=== PATIENT | female | born 1985 | race Caucasian/White ===

== ENCOUNTER 2020-11-14 10:58 | Inpatient (IN) | payer OTHER, SELFPAY ==
[2020-11-14] VITALS (10 sets, daily range): BP systolic 153–170; BP diastolic 86–100; PULSE 100–129; RESP 20–33; TEMP 36.7–37.4; O2SAT 86–94; BMI 47.3; BMI 42.5
--- NOTE | 2020-11-14 11:12 | CM.ED ---
RHODA Note Reason for Referral: Patient's oxygen level is low and patient is coughing Referral Source:RN RHODA met with patient. Provided emotional support. is covid positive. Patient has been in current condition for 3 days. Kids are home due to parents testing positive. Emotional support provided. Plan: Emotional Support Jen POTTER
--- NOTE | 2020-11-14 11:31 | ED.VIS.DYS ---
HPI History of Present Illness Chief Complaint: Cough Detail of Chief Complaint: Covid positive for approximately a week. Informant: patient Onset/Context/Timing Onset: Days Context: gradual Timing: Continuous Current Severity: Mild Maximum Severity: Mild Associated Symptoms cough Chest Pain: Positive for None Narrative Narrative: 35-year-old female history of diabetes and hypertension. Covid positive test about a week ago. Does complain of feeling short of breath. Cough. No hemoptysis. No leg pain or swelling. No history of DVT or PE. PE Risk Factors: Negative for Cancer, OCP + Smoking + > 35, Prior DVT or PE, Recent immobilization and Recent surgery Prior similar symptoms: No Recent Illness/Hospitalization: No PFSH PFSH Medical History (Updated 11/14/20 @ 13:[address] Cristino Reynolds MD) Diabetes Hypertension Home Medications Novolin R 56 units SQ BID 08/07/14 [History Last Taken 08/26/14 18:00] insulin NPH isoph U-100 human [Novolin N] 78 units SQ BID 08/07/14 [History Last Taken 08/26/14 22:00] metformin 1,000 mg PO BIDCM 08/07/14 [History Last Taken 08/26/14 22:00] [id number] [Prenatabs FA] 1 tab PO DAILY 08/07/14 [History Last Taken 1 Day Ago ~08/26/14] Allergy/AdvReac Type Severity Reaction Status Date / Time No Known Allergies Allergy Verified 11/14/20 11:11 Surgical History (Updated 11/14/20 @ 11:41 by Becca Feliz) History of History of cholecystectomy Social History Smoking Status: Never smoker ROS ROS ED ROS Narrative Cough. Shortness of breath. Review of Systems ROS Unobtainable: Denies due to encephalopathy Constitutional Constitutional ED: Denies chills or fever(s) Eyes Eyes: Denies change in vision ENT ENT ED: Denies ear pain or sore throat Cardiovascular Cardiovascular: Denies chest pain or palpitations Respiratory/Chest Respiratory/Chest: Reports cough and dyspnea; Denies sputum Gastrointestinal Gastrointestinal: Denies abdominal pain, diarrhea, nausea or vomiting Genitourinary Genitourinary ED: Denies dysuria Musculoskeletal Musculoskeletal: Denies myalgias Integumentary Denies rash Neurologic Neurologic: Denies headache(s) Psychiatric Psychiatric: Denies depression Endocrine Endocrinology: Denies polyuria Hematologic/Lymphatic Hematologic/Lymphatic: Denies easy bruising Allergic/Immunologic Allergic/Immunologic ED: Denies urticaria EXAM Physical Exam Narrative Exam Narrative: Well-appearing 35-year-old female. Vital signs are stable except pulse ox 89% on room air hypoxic. Afebrile. Does not look septic toxic. Lungs are clear equal symmetric bilaterally. Heart regular rhythm rate of 120. No murmur. Abdomen soft nontender. Moving all 4 extremities. Calves are nontender without edema or cords. Neurologically patient is awake alert with no focal motor deficits. Const Vital Signs: 11/14/20 10:59 11/14/20 11:38 Temperature 98.3 F 98.5 F Temperature Source Temporal Oral Pulse Rate 129 H 122 H Respiratory Rate 26 H 33 H Respiratory Effort Short of Breath Respiratory Pattern Tachypnea Blood Pressure 169/91 H 168/100 H Blood Pressure Mean 117 122 Pulse Ox 89 93 Oxygen Delivery Method Room Air Nasal Cannula Oxygen Flow Rate (L/min) 2 Positive well nourished, well developed and obese; Negative for cachectic, contractures or unkempt General Appearance ED: well developed and NAD; Negative for unkempt, cachectic or contractures Nutritional Appearance: obese; Negative for cachectic HEENT Reports moist mucous membranes atraumatic; Negative for trauma or tenderness Eyes PERRL and EOMs intact bilaterally Neck no lymphadenopathy, supple and no meningeal signs General: Negative for tenderness Resp normal respiratory effort and clear to auscultation bilaterally Auscultation: Negative for rales, rhonchi or wheezes Cardio regular rhythm, S1 normal heart sound, S2 normal heart sound and no murmurs; Negative for regular rate Rate: tachycardic GI non-tender, non-distended and no masses Auscultation: normoactive bowel sounds Palpation: soft; Negative for tender, guarding or rebound tenderness present Back/Spine no CVA tenderness and normal to inspection Extremity normal to inspection General Extremety ED: Negative for edema or tenderness General Extremity: Negative for edema Neuro oriented x3 Sensorium / Orientation: alert, oriented to person, oriented to place and oriented to time; Negative for orientation impaired, confused, lethargic or stuporous Motor Exam: strength 5/5 throughout Psych mental status grossly normal Appearance: Negative for unkempt Skin no wounds Lesions: no lesions Rashes: no rashes MDM MDM MDM Narrative Medical decision making narrative: 35-year-old female Covid positive complaint shortness of breath with hypoxia. Screening labs chest x-ray being obtained. Lab Data Attestation: I reviewed the patient's lab results. Lab results narrative: CBC shows a white count of 7. Hemoglobin 13. Electrolytes sodium 134 potassium of 3 gap of 9 normal creatinine. Glucose of 274. Patient is diabetic. Labs: Laboratory Results - last 24 hr 11/14/20 11/14/20 11:35 11:35 WBC 7.6 RBC 5.08 Hgb 13.8 Hct 41.1 MCV 80.9 L MCH 27.2 MCHC 33.6 RDW Std Deviation 36.8 RDW Coeff of Jabier 12.5 Plt Count 204 MPV 10.2 Immature Gran % (Auto) 0.500 Neut % (Auto) 73.4 H Lymph % (Auto) 21.8 [place] % (Auto) 4.2 Eos % (Auto) 0.0 Baso % (Auto) 0.1 Absolute Neuts (auto) 5.6 Absolute Lymphs (auto) 1.66 Nucleated RBC % 0 Sodium 134 L Potassium 3.0 L Chloride 100 Carbon Dioxide 25.0 Anion Gap 9 BUN 5 L Creatinine 0.68 Estim Creat Clear Calc 122.49 Est GFR (MDRD) Af Amer 125 Est GFR (MDRD) Non-Af 103 BUN/Creatinine Ratio 7.3 L Glucose 274 H Calcium 8.8 Radiography Chest X-Ray - ED: 1 View, Read by ED Physician, Read by Radiologist, Right Infiltrate and Left Infiltrate Diagnostic Testing: Radiology Impression Chest X-Ray 11/14/20 11:38 IMPRESSION: Patchy bibasilar infiltrates with blunting of both costophrenic angles. Electronically Signed: Akash Sales MD at 11:52 EDT , Service support , Portable single view chest x-ray interpreted myself and radiologist shows bilateral infiltrates consistent with Covid pneumonitis. Discharge Plan Triage Chief Complaint: Cough ED Provider: Cristino Reynolds Dx/Rx/DC Orders Clinical Impression: COVID, Hypoxia Prescriptions: No Action metformin 1,000 MG tablet 1,000 mg PO BIDCM RF: 0 insulin NPH isoph U-100 human [Novolin N NPH U-100 Insulin] 100 UNIT/ML Ml 78 units SQ BID RF: 0 [id number] [Prenatabs FA] 1 TABLET tablet 1 tab PO DAILY RF: 0 Novolin R 56 units SQ BID RF: 0 Primary Care Provider: Kendall Ordonez Referrals: Kendall Ordonez DO [Primary Care Provider] - Disposition Disposition: Acute Care Hospital [facility]
--- NOTE | 2020-11-14 11:38 | RAD_ITS ---
STUDY: X-RAY CHEST REASON FOR EXAM: Female, 35 years old. Dyspnea TECHNIQUE: Single AP portable view of the chest. COMPARISON: None. FINDINGS: EKG electrodes are seen. Patchy bibasilar infiltrates. Blunting of both costophrenic angles. Normal size heart. Normal mediastinum and essence. Normal visualized pulmonary arteries. Normal visualized aortic arch and descending thoracic aorta. Normal visualized thoracic spine. Normal visualized ribs, clavicles, and shoulders. There is no demonstrated abnormality of the visualized soft tissue structures of the upper abdomen. RAD/Chest 1 View (Portable) IMPRESSION: Patchy bibasilar infiltrates with blunting of both costophrenic angles. Electronically Signed: Akash Sales MD at 11:52 EDT , Service support ,
[2020-11-14 11:49] LABS: Absolute Lymphocyte Count 1.66 X10^3/uL (0.83-4.51); Absolute Neutrophil Count 5.6 X10^3/uL (2.0-7.7); Basophil# 0.01 X10^3/uL; Basophil% 0.1 % (0-1); Hematocrit 41.1 % (37-47); Hemoglobin 13.8 g/dL (12.0-15.0); Lymphocyte # 1.66 X10^3/ul (0.83-4.51); Lymphocyte % 21.8 % (19-41); Mean Corp Hgb Conc 33.6 g/dL (32-36); Mean Corpuscular Hgb 27.2 pg (27.0-32.0); Mean Corpuscular Volume 80.9 fL (81-99); Mean Platelet Vol. 10.2 fl (6.2-12.0); Monocyte# 0.32 X10^3/uL; Monocyte% 4.2 % (0-10); NRBC Flagged by Analyzer 0 % (0-5); Neutrophil # 5.57 X10^3/uL (2.7-7.7); Neutrophil % 73.4 % (47-70); Platelet Count 204 K/mm3 (150-450); RBC Distribution Width CV 12.5 % (11.6-14.6); RBC Distribution Width SD 36.8 fl (35.1-43.9); Red Blood Count 5.08 M/mm3 (4.2-5.4); White Blood Count 7.6 K/mm3 (4.4-11.0)
[2020-11-14 12:00] LABS: Anion Gap 9 (5-15); BUN 5 mg/dL (7-18); BUN/Creat Ratio 7.3 RATIO (10-20); Calcium,Total 8.8 mg/dL (8.5-10.1); Chloride 100 mmol/L (98-107); Creatinine, Serum 0.68 mg/dL (0.55-1.02); EST Glomerular Filtration Rate 103 mL/min (>60); Est Glom Filt Rate - Afr Amer 125 mL/min (>60); Estimated Creatinine Clearance 122.49 ml/min; Glucose 274 mg/dL (74-106); Sodium Level 134 mmol/L (136-145)
--- NOTE | 2020-11-14 12:57 | HP.PCM.HOS_ITS ---
HPI - General General Date of Admission: 11/14/20 HPI Narrative NATACHA DUNCAN, is a 35 F with a PMH as outlined who presents witha complaitn of cough and shortness of breath. She tested positive for covid 1 week ago, and her symptoms started November 04. Symptoms worsened and so she came in to the ED. She denied any chest pain, palpitations, dizziness, nausea or vomiting. Review of systems was otherwise negative. Vitals showed BP of 168/100, GA of 122, RR of 33 and temp of 98.5F with sats of 93% on 2L of oxygen. CBC showed wbc o 7.6, with Hb of 13.8, platelets of 204, BMP showed sodium of 134, K of 3 and bicarb of 25, with Cr of 0.68. CXR showed patchy bibasilar infiltrates with blunting of both costophrenic angles. SHe is being admitted to be managed for acute hypoxic respiratory insufficiency due to COVID 19 infection. She is unvaccinated. [facility] Medical History (Updated 11/14/20 @ 15:51 by Yasmin Stevens) Diabetes Hypertension Non-smoker Pancreatitis Sleep apnea Home Medications metformin 1,000 mg PO BIDCM 08/07/14 [History Last Taken 11/13/20] drospirenone-ethinyl estradiol 1 tab PO DAILY 11/14/20 [History Last Taken 11/13/20] insulin glargine [Basaglar KwikPen U-100 Insulin] 49 unit SUBCUT QHS 11/14/20 [History Last Taken 11/13/20] levothyroxine 50 mcg PO DAILY 11/14/20 [History Last Taken 11/13/20] losartan [Cozaar] 25 mg PO DAILY 11/14/20 [History Last Taken 11/13/20] Allergy/AdvReac Type Severity Reaction Status Date / Time No Known Allergies Allergy Verified 11/14/20 11:11 Surgical History (Updated 11/14/20 @ 11:41 by Becca Feliz) History of History of cholecystectomy Social History Smoking Status: Never smoker ROS Constitutional Constitutional: Reports fatigue and malaise; Denies anorexia, change in weight, chills, fever(s), night sweats or weakness ENT HEENT: Denies dysphagia, headache(s), nasal congestion or nasal discharge Cardiovascular Cardiovascular: Reports dyspnea on exertion, palpitations and rapid heart rate; Denies chest pain, edema, lightheadedness, orthopnea, paroxysmal nocturnal dyspnea or syncope Respiratory/Chest Respiratory/Chest: Reports cough, dyspnea, productive cough, shortness of breath at rest and shortness of breath with exertion; Denies excessive phlegm production, hemoptysis or wheezing Gastrointestinal Gastrointestinal: Denies abdominal pain, constipation, diarrhea, nausea or vomiting Genitourinary Genitourinary: Denies burning urination, dysuria or urinary frequency Musculoskeletal Musculoskeletal: Denies arthralgias, back pain, joint swelling or myalgias Neurologic Neurologic: Denies confusion, dizziness, focal weakness, seizures or syncope Psychiatric Psychiatric: Denies anxiety Vital Signs Vital Signs Vital Signs: 11/14/20 10:59 11/14/20 11:38 Temperature 98.3 F 98.5 F Temperature Source Temporal Oral Pulse Rate 129 H 122 H Respiratory Rate 26 H 33 H Respiratory Effort Short of Breath Respiratory Pattern Tachypnea Blood Pressure 169/91 H 168/100 H Blood Pressure Mean 117 122 Pulse Ox 89 93 Oxygen Delivery Method Room Air Nasal Cannula Oxygen Flow Rate (L/min) 2 Weight Weight: 330 lb Body Mass Index (BMI) 47.3 Physical Exam Const alert, oriented x3 and no apparent distress Constitutional Narrative: super morbid obesity General Appearance: cooperative HEENT normocephalic, head/scalp atraumatic, hearing grossly normal bilaterally and moist oral mucous membranes Eyes PERRL, EOMs intact bilaterally and conjunctivae normal Neck no lymphadenopathy, supple, no JVD and no carotid bruits Resp Resp Narrative: tachypneic, diminished breath sounds bibasally, no wheezes or crackles. On 2L of oxygen Cardio regular rhythm, S1 normal heart sound, S2 normal heart sound and no murmurs Cardio Narrative: tachyardic GI normal to inspection, nondistended, normoactive bowel sounds, soft to palpation, non-tender and non-distended Extremity normal to inspection, full ROM and no clubbing, cyanosis or edema Peripheral Pulses: Yes pulses 2+ throughout Skin no rashes or lesions noted Neuro oriented x3, CN's II-XII intact bilaterally and moves all extremities Sensorium / Orientation: awake and alert Psych affect normal Results Lab / Micro Data Result Diagrams: 11/14/20 11:35 11/14/20 11:35 Labs: Laboratory Results - last 24 hr 11/14/20 11:35: WBC 7.6, RBC 5.08, Hgb 13.8, Hct 41.1, MCV 80.9 L, MCH 27.2, MCHC 33.6, RDW Std Deviation 36.8, RDW Coeff of Jabier 12.5, Plt Count 204, MPV 10.2, Immature Gran % (Auto) 0.500, Neut % (Auto) 73.4 H, Lymph % (Auto) 21.8, [place] % (Auto) 4.2, Eos % (Auto) 0.0, Baso % (Auto) 0.1, Absolute Neuts (auto) 5.6, Absolute Lymphs (auto) 1.66, Nucleated RBC % 0 11/14/20 11:35: Sodium 134 L, Potassium 3.0 L, Chloride 100, Carbon Dioxide 25.0, Anion Gap 9, BUN 5 L, Creatinine 0.68, Estim Creat Clear Calc 122.49, Est GFR (MDRD) Af Amer 125, Est GFR (MDRD) Non-Af 103, BUN/Creatinine Ratio 7.3 L, Glucose 274 H, Calcium 8.8 Radiology Impression Chest X-Ray 11/14/20 11:38 IMPRESSION: Patchy bibasilar infiltrates with blunting of both costophrenic angles. Electronically Signed: Akash Sales MD at 11:52 EDT , Service support , Assessment & Plan Assessment/Plan (1) COVID: (2) Hypoxia: PLAN: #Acute hypoxic respiratory insufficiency due to COVID 19 infection * admit to med surg with telemetry * start on IV decadron and remdesivir * breathing treatment with bronchodilators * CXR showed patchy bibasilar infiltrates with blunting of both costophrenic angles * titrate oxygen to maintain sats >90% * check D dimer * #SIRS criteria * patient is tachypneic and tachycardic. Likely due to COVID 19 infection * hold off on sepsis workup for now * #TYpe 2 diabetes mellitus * on metformin and insulin NPH 78 units bid. * ISS. Accuchecks ACHS * #DVT prophylaxis: lovenox 40mg bid Code status: full code * Patient counseled extensively about different types of CODE STATUS including full code, DNR CCA and DNR CCA. Patient elects to be full code. * Total [id number] time 17 minutes. Charges/Coding Visit Charges Inpatient E&M: 38241 Init Hosp L3 Procedures Hospitalists Procedures: 84511 Advncd Care Plan 30 Min
--- NOTE | 2020-11-14 13:14 | NURSING ---
PCU OBS KORAM COVID , HYPOXIA
[2020-11-14] MEDS: dexAMETHasone 20 MG/5 ML Vial IV (13:45)
--- NOTE | 2020-11-14 15:21 | NURSING ---
This nurse clarified if Dr. Patricio wanted pt to be in PCU Vs Med Surg. Via phone per Dr. Patricio she is okay to be here on Med Surg.
[2020-11-14 16:53] LABS: BNP,B-Type NATRIURETIC PEPTIDE 2.7 pg/mL (0-100)
[2020-11-14 16:54] LABS: Prothrombin Time (Protime)PT. 12.9 SECONDS (11.7-14.9)
[2020-11-14 16:58] LABS: Alkaline Phosphatase 78 U/L (45-117); CPK Total, Creatine Kinase 70 U/L (26-192); Troponin-I HS 7 pg/mL (3.0-54.0)
[2020-11-14 17:02] LABS: Procalcitonin 0.07 ng/mL (0.00-0.09)
[2020-11-14 17:30] LABS: Lactic Acid 1.6 mmol/L (0.4-1.9)
[2020-11-14 17:32] LABS: D-Dimer Quantitative (DVT/PE) 0.77 FEU/ug/m (0.27-0.49)
[2020-11-14] MEDS: 0.9% Normal Saline 1,000 ML 100 ML IV (17:32)
[2020-11-14] MEDS: 0.9% Saline Lock 10 ML Syringe IV ×2 (17:32→18:51)
[2020-11-14] MEDS: Insulin Lispro 100 UNIT/ML INSULN.PEN SC ×2 (17:34→20:16)
[2020-11-14 17:46] LABS: Bedside Glucose 323 mg/dL (70-110)
--- NOTE | 2020-11-14 17:52 | NURSING ---
Informed Dr. Patricio via Cortext of D-dimer of 0.77
--- NOTE | 2020-11-14 17:53 | CT_ITS ---
HISTORY: Cough, dyspnea, Covid, elevated D Dimer EXAMINATION: CTA Chest WO/W Contrast Injection TECHNIQUE: Helically acquired images were obtained of the chest following IV contrast as per pulmonary angiogram protocol with 3D reconstructions. A radiation dose optimization technique was used for this scan. IV Contrast dosage and agent: 100mL Isovue-370 COMPARISON: None FINDINGS: LUNGS, PLEURA AND LARGE AIRWAYS: Extensive, multifocal and bilateral alveolar and groundglass opacities with scattered consolidations at the lung bases. Septal prominence. No pleural effusions. THYROID: No thyroid lesions. PULMONARY ARTERIES: There is suboptimal opacification of the pulmonary arteries. There is no central or hilar pulmonary embolism. Segmental branch pulmonary embolism cannot be excluded. AORTA AND GREAT VESSELS: Normal in caliber. No evidence of dissection. HEART AND PERICARDIUM: Cardiomegaly. No pericardial effusion. No signs of right heart strain. MEDIASTINUM AND KYLE: No mediastinal or hilar adenopathy. Esophagus is unremarkable. No hiatal hernia. UPPER ABDOMEN: Cholecystectomy. Diffuse hepatic steatosis. BONES: Unremarkable. CT/CTA Chest W/WO Contrast IMPRESSION: Suboptimal opacification of the pulmonary arteries. There is no central or hilar pulmonary embolism, but the primary segmental and secondary subsegmental branches cannot be evaluated. If symptomatology persists, either a repeat study or V/Q scan should be considered. Pulmonary findings consistent with pneumonia including atypical or viral pneumonia. Cardiomegaly. Individualized dose optimization techniques were used for this CT. at 1915 Reported and signed by: Sedrick Herrera MD Electronically Signed: Sedrick Herrera MD at 19:14 EDT Tel , Service support ,
[2020-11-14] MEDS: Potassium Chloride Oral Tablet 20 MEQ 60 MEQ PO (18:51)
[2020-11-14] MEDS: Enoxaparin 40 MG/0.4 ML Syringe SC (20:17)
[2020-11-14 20:46] LABS: Bedside Glucose 419 mg/dL (70-110)
[2020-11-15] VITALS (16 sets, daily range): BP systolic 135–144; BP diastolic 86–97; PULSE 73–97; RESP 20; TEMP 36.3–36.8; O2SAT 93–96
[2020-11-15] MEDS: Insulin Lispro 100 UNIT/ML INSULN.PEN SC ×4 (05:38→21:15)
[2020-11-15] MEDS: 0.9% Normal Saline 1,000 ML 100 ML IV (05:40)
[2020-11-15] MEDS: guaiFENesin 10 ML UDC (200MG/10ML) 20 ML PO ×5 (05:45→22:06)
[2020-11-15 06:00] LABS: Bedside Glucose 308 mg/dL (70-110)
[2020-11-15 07:19] LABS: Absolute Lymphocyte Count 1.45 X10^3/uL (0.83-4.51); Absolute Neutrophil Count 4.3 X10^3/uL (2.0-7.7); Basophil# 0.01 X10^3/uL; Basophil% 0.2 % (0-1); Hematocrit 37.7 % (37-47); Hemoglobin 12.2 g/dL (12.0-15.0); Lymphocyte # 1.45 X10^3/ul (0.83-4.51); Lymphocyte % 23.6 % (19-41); Mean Corp Hgb Conc 32.4 g/dL (32-36); Mean Corpuscular Hgb 27.1 pg (27.0-32.0); Mean Corpuscular Volume 83.6 fL (81-99); Mean Platelet Vol. 10.8 fl (6.2-12.0); Monocyte# 0.33 X10^3/uL; Monocyte% 5.4 % (0-10); NRBC Flagged by Analyzer 0 % (0-5); Neutrophil # 4.33 X10^3/uL (2.7-7.7); Neutrophil % 70.3 % (47-70); Platelet Count 191 K/mm3 (150-450); RBC Distribution Width CV 12.6 % (11.6-14.6); RBC Distribution Width SD 38.4 fl (35.1-43.9); Red Blood Count 4.51 M/mm3 (4.2-5.4); White Blood Count 6.2 K/mm3 (4.4-11.0)
[2020-11-15 08:01] LABS: ALB/GLOB Ratio 0.5 RATIO (0.9-2.4); AST(SGOT) 21 U/L (15-37); Alanine Aminotransfer ALT/SGPT 27 U/L (13-56); Albumin, Serum 2.4 g/dL (3.2-5.0); Alkaline Phosphatase 73 U/L (45-117); Anion Gap 9 (5-15); BUN 9 mg/dL (7-18); BUN/Creat Ratio 15.1 RATIO (10-20); Calcium,Total 8.6 mg/dL (8.5-10.1); Chloride 106 mmol/L (98-107); EST Glomerular Filtration Rate 120 mL/min (>60); Est Glom Filt Rate - Afr Amer 146 mL/min (>60); Estimated Creatinine Clearance 138.82 ml/min; Globulin 4.8 g/dL (2.2-4.2); Glucose 301 mg/dL (74-106); Potassium 3.7 mmol/L (3.5-5.1); Protein, Total 7.2 g/dL (6.4-8.2); Sodium Level 137 mmol/L (136-145)
[2020-11-15] MEDS: Acetaminophen 325 MG Tablet 650 MG PO ×2 (09:27→17:44)
[2020-11-15] MEDS: dexAMETHasone 10 MG/ML Vial 6 MG IV (09:40)
[2020-11-15] MEDS: 0.9% Saline Lock 10 ML Syringe IV ×3 (09:41→21:17)
[2020-11-15] MEDS: Enoxaparin 40 MG/0.4 ML Syringe SC ×2 (09:42→21:16)
[2020-11-15 11:40] LABS: Bedside Glucose 328 mg/dL (70-110)
--- NOTE | 2020-11-15 12:24 | PN.HOSP_ITS ---
Subjective Subjective Patient seen and examined. She had no active complaints today and felt well. REview of systems is otherwise negative. She is now on 6 L of oxygen. She has otherwise remained hemodynamically stable. Objective Data Objective Data Vital Signs: Vital Signs Temp Pulse Resp BP Pulse Ox 97.3 F L 97 20 H 138/97 H 94 11/15/20 09:33 11/15/20 09:33 11/15/20 09:33 11/15/20 09:33 11/15/20 09:33 Oxygen Flow Rate (L/min) 6 Oxygen Delivery Method Nasal Cannula Weight: 296 lb 1.6 oz Body Mass Index (BMI) 42.5 Intake & Output: Intake and Output for Last 24 Hours 11/13/20 11/14/20 11/15/20 23:59 23:59 23:59 Intake Total 650.00 / 650.00 1216.67 / 1216.67 Balance 650.00 / 650.00 1216.67 / 1216.67 Lab / Micro Data Result Diagrams: 11/15/20 06:40 11/15/20 06:40 Labs: Laboratory Results - last 24 hr 11/14/20 16:00: PT 12.9, INR 1.0, D-Dimer Quant (PE/DVT) 0.77 H* 11/14/20 16:00: Alkaline Phosphatase 78, Total Creatine Kinase 70, Troponin I High Sens 7 11/14/20 16:00: B-Natriuretic Peptide 2.7 11/14/20 16:00: Procalcitonin 0.07 11/14/20 16:40: Lactic Acid 1.6 11/14/20 17:19: POC Glucose 323 H 11/14/20 20:07: POC Glucose 419 H 11/15/20 05:37: POC Glucose 308 H 11/15/20 06:40: WBC 6.2, RBC 4.51, Hgb 12.2, Hct 37.7, MCV 83.6, MCH 27.1, MCHC 32.4, RDW Std Deviation 38.4, RDW Coeff of Jabier 12.6, Plt Count 191, MPV 10.8, Immature Gran % (Auto) 0.500, Neut % (Auto) 70.3 H, Lymph % (Auto) 23.6, [place] % (Auto) 5.4, Eos % (Auto) 0.0, Baso % (Auto) 0.2, Absolute Neuts (auto) 4.3, Absolute Lymphs (auto) 1.45, Nucleated RBC % 0 11/15/20 06:40: Sodium 137, Potassium 3.7, Chloride 106, Carbon Dioxide 22.0, Anion Gap 9, BUN 9, Creatinine 0.60, Estim Creat Clear Calc 138.82, Est GFR (MDRD) Af Amer 146, Est GFR (MDRD) Non-Af 120, BUN/Creatinine Ratio 15.1, Glucose 301 H, Calcium 8.6, Total Bilirubin 0.50, AST 21, ALT 27, Alkaline Phosphatase 73, Total Protein 7.2, Albumin 2.4 L, Globulin 4.8 H, Albumin/[place]ha bulin Ratio 0.5 L 11/15/20 11:24: POC Glucose 328 H Radiography Diagnostic Testing: Radiology Impression Chest CTA 11/14/20 17:53 IMPRESSION: Suboptimal opacification of the pulmonary arteries. There is no central or hilar pulmonary embolism, but the primary segmental and secondary subsegmental branches cannot be evaluated. If symptomatology persists, either a repeat study or V/Q scan should be considered. Pulmonary findings consistent with pneumonia including atypical or viral pneumonia. Cardiomegaly. Individualized dose optimization techniques were used for this CT. at 1915 Reported and signed by: Sedrick Herrera MD Electronically Signed: Sedrick Herrera MD at 19:14 EDT Tel , Service support , Physical Exam Const alert, oriented x3 and no apparent distress Constitutional Narrative: super morbid obesity General Appearance: cooperative Exam Limitations: no limitations HEENT normocephalic, head/scalp atraumatic, hearing grossly normal bilaterally and moist oral mucous membranes Head and Scalp: normocephalic Eyes PERRL, EOMs intact bilaterally and conjunctivae normal Neck no lymphadenopathy, supple, no JVD and no carotid bruits Resp Resp Narrative: tachypneic, diminished breath sounds bibasally, no wheezes or crackles. On 6L of oxygen Cardio regular rate, regular rhythm, S1 normal heart sound, S2 normal heart sound and no murmurs GI normal to inspection, nondistended, normoactive bowel sounds, soft to palpation, non-tender and non-distended Extremity normal to inspection, full ROM and no clubbing, cyanosis or edema Skin no rashes or lesions noted Neuro oriented x3, CN's II-XII intact bilaterally and moves all extremities Sensorium / Orientation: awake and alert Psych affect normal Assessment & Plan Assessment/Plan (1) COVID: (2) Hypoxia: PLAN: #Acute hypoxic respiratory insufficiency due to COVID 19 infection * on remdesivir and decadron. * now on 12L. * on breathing treatment with bronchodilators. * titrate oxygen to maintain sats >90% * pulmonology on board * CTA of the chest done showed suboptimal opacification of the pulmonary arteries with no central or hilar pulmonary embolism, and segmental branch PE could not be excluded * * #SIRS criteria * resolved. * #TYpe 2 diabetes mellitus * on metformin and insulin NPH 78 units bid. * ISS. Accuchecks ACHS * #DVT prophylaxis: lovenox 40mg bid Code status: full code * Charges/Coding Visit Charges Inpatient E&M: 38218 Subs Hosp L3
--- NOTE | 2020-11-15 14:45 | CASEMGMT ---
EWA DELANEY Assessment: Face to Face with pt for initial transition planning/care coordination assessment. RN ELAINA introduced self and role at [facility], pt voices understanding and consents to assessment. Pt is A/O x4 and answers all questions appropriately at this time. Pt sitting up in chair with O2 on in no distress. Care providers, pharmacy, and demographics verified/updated. Admitting Dx: COVID 19 infection PCP:José Luis Specialists:Pt denies. Preferred Pharmacy: [facility] [place] Insurance: MMO Prescription Benefit: yes LW/HPOA: Pt denies having a LW/DPOA or need for info regarding. LNOK: Luigi Cortez, Living Arrangements: Pt lives with and 2 children in a single story house with 3 steps to enter. Pt reports being I in ADL's and denies concerns at home. Transportation: Pt drives self and denies concerns with transportation. DME/HHC: Pt denies having any DME or hx of HHC. Pt states she was tested for COVID at [facility] urgent care for her first positive result. Her is also positive and her children have to be tested this weekend to go back to school. The whole family has been quarantining. 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 Pt provided with a verbal list of local in network DME companies. Pt chose [employer]. Pt states no concerns with going home at time of dc. Pt states no further concerns/needs. CM to follow. Advised pt to ask CM if any further question/concerns/needs arise, voices understanding. Pt Goal: Home Plan: Home
[2020-11-15 16:15] LABS: Bedside Glucose 332 mg/dL (70-110)
[2020-11-15 22:56] LABS: Bedside Glucose 368 mg/dL (70-110)
[2020-11-16] VITALS (17 sets, daily range): BP systolic 119–148; BP diastolic 79–99; PULSE 58–90; RESP 18–24; TEMP 36.4–36.8; O2SAT 87–98
[2020-11-16] MEDS: Acetaminophen 325 MG Tablet 650 MG PO ×3 (01:13→22:04)
[2020-11-16] MEDS: Insulin Lispro 100 UNIT/ML INSULN.PEN SC ×4 (05:48→22:09)
[2020-11-16] MEDS: guaiFENesin 10 ML UDC (200MG/10ML) 20 ML PO ×4 (05:51→22:03)
[2020-11-16 06:36] LABS: Bedside Glucose 278 mg/dL (70-110)
[2020-11-16 07:38] LABS: Absolute Lymphocyte Count 2.69 X10^3/uL (0.83-4.51); Absolute Neutrophil Count 4.8 X10^3/uL (2.0-7.7); Basophil# 0.01 X10^3/uL; Basophil% 0.1 % (0-1); Eosinophil# 0.01 X10^3/uL; Eosinophils% 0.1 % (0-5); Hematocrit 34.6 % (37-47); Hemoglobin 11.4 g/dL (12.0-15.0); Lymphocyte # 2.69 X10^3/ul (0.83-4.51); Lymphocyte % 34.2 % (19-41); Mean Corp Hgb Conc 32.9 g/dL (32-36); Mean Corpuscular Hgb 27.3 pg (27.0-32.0); Mean Corpuscular Volume 82.8 fL (81-99); Mean Platelet Vol. 10.6 fl (6.2-12.0); Monocyte# 0.35 X10^3/uL; Monocyte% 4.4 % (0-10); NRBC Flagged by Analyzer 0 % (0-5); Neutrophil # 4.79 X10^3/uL (2.7-7.7); Neutrophil % 60.9 % (47-70); Platelet Count 233 K/mm3 (150-450); RBC Distribution Width CV 12.5 % (11.6-14.6); Red Blood Count 4.18 M/mm3 (4.2-5.4); White Blood Count 7.9 K/mm3 (4.4-11.0)
[2020-11-16 08:03] LABS: ALB/GLOB Ratio 0.5 RATIO (0.9-2.4); AST(SGOT) 17 U/L (15-37); Alanine Aminotransfer ALT/SGPT 22 U/L (13-56); Albumin, Serum 2.4 g/dL (3.2-5.0); Alkaline Phosphatase 66 U/L (45-117); Anion Gap 7 (5-15); BUN 12 mg/dL (7-18); BUN/Creat Ratio 22.3 RATIO (10-20); Calcium,Total 8.3 mg/dL (8.5-10.1); Chloride 106 mmol/L (98-107); Creatinine, Serum 0.54 mg/dL (0.55-1.02); EST Glomerular Filtration Rate 136 mL/min (>60); Est Glom Filt Rate - Afr Amer 164 mL/min (>60); Estimated Creatinine Clearance 154.25 ml/min; Globulin 4.6 g/dL (2.2-4.2); Glucose 274 mg/dL (74-106); Potassium 3.3 mmol/L (3.5-5.1); Sodium Level 138 mmol/L (136-145)
--- NOTE | 2020-11-16 08:13 | CON.PCM.CC_ITS ---
Assessment & Plan Assessment/Plan (1) COVID: PLAN: RECOMMENDATIONS: 1. Wean supplemental oxygen to maintain saturations at or above 90%. 2. Continue Decadron to complete 10 days of therapy. 3. Continue remdesivir to complete 5 days of therapy. Continue to monitor liver and renal function. 4. Awake prone positioning was encouraged. 5. Encourage incentive spirometer use and mobilize patient as tolerated. 6. Consider infectious diseases consultation. 7. Utilize IV Lasix as needed to maintain euvolemic state. 8. Continue Lovenox twice daily. IMPRESSIONS: 1. Acute hypoxemic respiratory failure secondary to COVID-19 pneumonia The patient presented to the hospital with progressive respiratory symptoms after having tested positive for coronavirus approximately 1 week ago. Accordingly, she will be maintained on remdesivir to complete a 5-day treatment course. Liver and renal function will be monitored. Decadron will be continued to complete 10 days of therapy. CTA chest was negative. Therefore, Lovenox twice daily will be continued. Continue to wean supplemental oxygen to maintain saturations at or above 90%. Awake prone positioning was encouraged. Recommend ID consultation as well. Periodic use of diuretic therapy can be utilized to maintain euvolemic state. 2. Morbid obesity/diabetes mellitus/hypothyroidism/hypertension Complicates care, management, recovery and prognosis. Continue home medications as indicated. This note was generated with [employer] dictation software. It may contain incorrect words, spelling, and punctuation that were not noted in checking the note before signing. HPI Consult Data Date of Consult: 11/16/20 HPI Narrative Reason for Consultation: Acute hypoxemic respiratory failure secondary to COVID- 19 pneumonia HPI Narrative: The patient is a 35-year-old female, with a history as outlined below, who presented to the emergency department on November 14 with cough and dyspnea. The patient's symptoms initially began on November 04. She tested positive for coronavirus approximately 1 week ago. 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 She is unvaccinated. On presentation to the emergency department, the patient was noted to have a low-grade fever and was tachycardic and tachypneic. Laboratory evaluation rev ealed no evidence of a leukocytosis. Chemistry profile was notable for a sodium of 134, potassium of 3.0 and normal creatinine. Liver function was within normal limits. Procalcitonin was unremarkable. D-dimer was mildly elevated to 0.77. CTA chest showed no evidence for PE. Bilateral groundglass opacities were noted. The patient was started on remdesivir, Decadron and twice daily Lovenox. She was subsequently admitted to the hospital for further management. [facility] Medical History (Updated 11/14/20 @ 15:51 by Yasmin Stevens) Diabetes Hypertension Non-smoker Pancreatitis Sleep apnea Home Medications metformin 1,000 mg PO BIDCM 08/07/14 [History Last Taken 11/13/20] drospirenone-ethinyl estradiol 1 tab PO DAILY 11/14/20 [History Last Taken 11/13/20] insulin glargine [Basaglar KwikPen U-100 Insulin] 49 unit SUBCUT QHS 11/14/20 [History Last Taken 11/13/20] levothyroxine 50 mcg PO DAILY 11/14/20 [History Last Taken 11/13/20] losartan [Cozaar] 25 mg PO DAILY 11/14/20 [History Last Taken 11/13/20] Allergy/AdvReac Type Severity Reaction Status Date / Time No Known Allergies Allergy Verified 11/14/20 11:11 Surgical History (Updated 11/14/20 @ 11:41 by Becca Feliz) History of History of cholecystectomy Social History Smoking Status: Never smoker ROS Constitutional Constitutional: Reports fatigue; Denies chills or fever(s) Eyes Eyes: Denies blurry vision or change in vision ENT HEENT: Denies dizziness, dysphagia or headache(s) Cardiovascular Cardiovascular: Reports dyspnea; Denies chest pain Respiratory/Chest Respiratory/Chest: Reports cough and dyspnea Gastrointestinal Gastrointestinal: Denies abdominal pain, diarrhea, nausea or vomiting Genitourinary Genitourinary: Denies difficulty urinating Musculoskeletal Musculoskeletal: Denies arthralgias, back pain or joint pain Integumentary Integumentary: Denies lesions, rash or skin ulcer Neurologic Neurologic: Denies abnormal gait or abnormal speech Psychiatric Psychiatric: Denies anxiety or depression Endocrine Endocrinology: Denies fatigue Hematologic/Lymphatic Hematologic/Lymphatic: Denies easy bleeding or easy bruising Physical Exam Const alert and no apparent distress Constitutional Narrative: Sitting in bedside recliner. General Appearance: cooperative Nutritional Appearance: morbidly obese HEENT normocephalic, head/scalp atraumatic and moist oral mucous membranes Eyes PERRL, EOMs intact bilaterally and conjunctivae normal Neck supple General: trachea midline Chest inspection of chest normal Resp normal respiratory effort Auscultation: diminished lung sounds; Negative for rales, rhonchi or wheezes Cardio regular rate and regular rhythm GI normal to inspection, nondistended, normoactive bowel sounds Extremity no clubbing, cyanosis or edema Skin no rashes or lesions noted Neuro oriented x3, CN's II-XII intact bilaterally and moves all extremities Psych cooperative and affect normal Lab / Micro Data Result Diagrams: 11/16/20 06:23 11/16/20 06:23 Labs: Laboratory Results - last 24 hr 11/15/20 11:24: POC Glucose 328 H 11/15/20 15:57: POC Glucose 332 H 11/15/20 21:13: POC Glucose 368 H 11/16/20 05:45: POC Glucose 278 H 11/16/20 06:23: WBC 7.9, RBC 4.18 L, Hgb 11.4 L, Hct 34.6 L, MCV 82.8, MCH 27.3, MCHC 32.9, RDW Std Deviation 38.0, RDW Coeff of Jabier 12.5, Plt Count 233, MPV 10.6, Immature Gran % (Auto) 0.300, Neut % (Auto) 60.9, Lymph % (Auto) 34.2, [place] % (Auto) 4.4, Eos % (Auto) 0.1, Baso % (Auto) 0.1, Absolute Neuts (auto) 4.8, Absolute Lymphs (auto) 2.69, Nucleated RBC % 0 11/16/20 06:23: Sodium 138, Potassium 3.3 L, Chloride 106, Carbon Dioxide 25.0, Anion Gap 7, BUN 12, Creatinine 0.54 L, Estim Creat Clear Calc 154.25, Est GFR (MDRD) Af Amer 164, Est GFR (MDRD) Non-Af 136, BUN/Creatinine Ratio 22.3 H, Glucose 274 H, Calcium 8.3 L, Total Bilirubin 0.40, AST 17, ALT 22, Alkaline Phosphatase 66, Total Protein 7.0, Albumin 2.4 L, Globulin 4.6 H, Albumin/Globulin Ratio 0.5 L Charges/Coding Visit Charges Inpatient E&M: 18324 Init Hosp L3
[2020-11-16] MEDS: dexAMETHasone 10 MG/ML Vial 6 MG IV (10:26)
[2020-11-16] MEDS: Enoxaparin 40 MG/0.4 ML Syringe SC ×2 (10:26→22:04)
[2020-11-16] MEDS: 0.9% Saline Lock 10 ML Syringe IV (10:28)
--- NOTE | 2020-11-16 12:00 | PN.HOSP_ITS ---
Subjective Subjective Patient seen and examined. She felt more short of breath today and was also coughing. Cough was not productive. SHe had no other complaints and review of systems was otherwise negative. She is now on 7 L of oxygen. Potassium today is 3.3. Objective Data Objective Data Vital Signs: Vital Signs Temp Pulse Resp BP Pulse Ox 97.7 F L 68 20 H 119/79 96 11/16/20 05:40 11/16/20 05:59 11/16/20 05:40 11/16/20 05:40 11/16/20 05:40 Oxygen Flow Rate (L/min) [ 5 AMBULATING with Oxygen #1] Oxygen Flow Rate (L/min) [At 5 REST with Oxygen] Oxygen Flow Rate (L/min) 5 Oxygen Delivery Method Nasal Cannula Weight: 296 lb 1.6 oz Body Mass Index (BMI) 42.5 Intake & Output: Intake and Output for Last 24 Hours 11/14/20 11/15/20 11/16/20 23:59 23:59 23:59 Intake Total 650.00 / 650.00 3566.67 / 3566.67 600 / 600 Balance 650.00 / 650.00 3566.67 / 3566.67 600 / 600 Lab / Micro Data Result Diagrams: 11/16/20 06:23 11/16/20 06:23 Labs: Laboratory Results - last 24 hr 11/15/20 15:57: POC Glucose 332 H 11/15/20 21:13: POC Glucose 368 H 11/16/20 05:45: POC Glucose 278 H 11/16/20 06:23: WBC 7.9, RBC 4.18 L, Hgb 11.4 L, Hct 34.6 L, MCV 82.8, MCH 27.3, MCHC 32.9, RDW Std Deviation 38.0, RDW Coeff of Jabier 12.5, Plt Count 233, MPV 10.6, Immature Gran % (Auto) 0.300, Neut % (Auto) 60.9, Lymph % (Auto) 34.2, [place] % (Auto) 4.4, Eos % (Auto) 0.1, Baso % (Auto) 0.1, Absolute Neuts (auto) 4.8, Absolute Lymphs (auto) 2.69, Nucleated RBC % 0 11/16/20 06:23: Sodium 138, Potassium 3.3 L, Chloride 106, Carbon Dioxide 25.0, Anion Gap 7, BUN 12, Creatinine 0.54 L, Estim Creat Clear Calc 154.25, Est GFR (MDRD) Af Amer 164, Est GFR (MDRD) Non-Af 136, BUN/Creatinine Ratio 22.3 H, Glucose 274 H, Calcium 8.3 L, Total Bilirubin 0.40, AST 17, ALT 22, Alkaline Phosphatase 66, Total Protein 7.0, Albumin 2.4 L, Globulin 4.6 H, Albumin/Globulin Ratio 0.5 L Physical Exam Const alert, oriented x3 and no apparent distress Constitutional Narrative: super morbid obesity General Appearance: cooperative Exam Limitations: no limitations HEENT normocephalic, head/scalp atraumatic, hearing grossly normal bilaterally and moist oral mucous membranes Head and Scalp: normocephalic Eyes PERRL, EOMs intact bilaterally and conjunctivae normal Neck no lymphadenopathy, supple, no JVD and no carotid bruits Resp Resp Narrative: tachypneic, diminished breath sounds bibasally, no wheezes or crackles. On 7L of oxygen Cardio regular rate, regular rhythm, S1 normal heart sound, S2 normal heart sound and no murmurs Cardio Narrative: GI normal to inspection, nondistended, normoactive bowel sounds, soft to palpation, non-tender and non-distended Extremity normal to inspection, full ROM and no clubbing, cyanosis or edema Peripheral Pulses: Yes pulses 2+ throughout Skin no rashes or lesions noted Neuro oriented x3, CN's II-XII intact bilaterally and moves all extremities Sensorium / Orientation: awake and alert Psych affect normal Assessment & Plan Assessment/Plan (1) COVID: (2) Hypoxia: PLAN: #Acute hypoxic respiratory insufficiency due to COVID 19 infection * on remdesivir and decadron. She is more short of breath today and is up to 7L of oxygen * on breathing treatment with bronchodilators. * titrate oxygen to maintain sats >90% * pulmonology on board * CTA of the chest done showed suboptimal opacification of the pulmonary arteries with no central or hilar pulmonary embolism, and segmental branch PE could not be excluded * consult ID * #SIRS criteria * resolved. * #Hypokalemia: K is 3.3 today. Will replace and trend #TYpe 2 diabetes mellitus * on metformin and insulin NPH 78 units bid. * ISS. Accuchecks ACHS * #DVT prophylaxis: lovenox 40mg bid Code status: full code * Charges/Coding Visit Charges Inpatient E&M: 75652 Subs Hosp L3
[2020-11-16 12:20] LABS: Bedside Glucose 321 mg/dL (70-110)
[2020-11-16 15:50] LABS: Bedside Glucose 387 mg/dL (70-110)
[2020-11-16] MEDS: Potassium Chloride Oral Tablet 20 MEQ 40 MEQ PO (22:03)
[2020-11-16 23:11] LABS: Bedside Glucose 311 mg/dL (70-110)
[2020-11-17] VITALS (13 sets, daily range): BP systolic 141–155; BP diastolic 86–92; PULSE 70–101; RESP 18–20; TEMP 36.4–36.7; O2SAT 90–96
--- NOTE | 2020-11-17 00:48 | PCS.PANDOC ---
PANDEMIC DOCUMENTATION INITIATED: Date: 10/21/2020 Time: 190
[2020-11-17] MEDS: guaiFENesin 10 ML UDC (200MG/10ML) 20 ML PO ×3 (02:42→14:45)
[2020-11-17] MEDS: Acetaminophen 325 MG Tablet 650 MG PO ×2 (06:50→23:16)
[2020-11-17] MEDS: Sodium Chloride 0.65% 1 SPRAY SPRAY.BTL 2 SPRAY NASAL (06:50)
[2020-11-17 07:01] LABS: Absolute Lymphocyte Count 3.28 X10^3/uL (0.83-4.51); Absolute Neutrophil Count 5.2 X10^3/uL (2.0-7.7); Basophil# 0.02 X10^3/uL; Basophil% 0.2 % (0-1); Hemoglobin 11.1 g/dL (12.0-15.0); Lymphocyte # 3.28 X10^3/ul (0.83-4.51); Lymphocyte % 35.5 % (19-41); Mean Corp Hgb Conc 33.6 g/dL (32-36); Mean Corpuscular Hgb 27.3 pg (27.0-32.0); Mean Corpuscular Volume 81.3 fL (81-99); Mean Platelet Vol. 10.7 fl (6.2-12.0); Monocyte# 0.63 X10^3/uL; Monocyte% 6.8 % (0-10); NRBC Flagged by Analyzer 0 % (0-5); Neutrophil # 5.24 X10^3/uL (2.7-7.7); Neutrophil % 56.6 % (47-70); Platelet Count 263 K/mm3 (150-450); RBC Distribution Width CV 12.4 % (11.6-14.6); RBC Distribution Width SD 36.7 fl (35.1-43.9); Red Blood Count 4.06 M/mm3 (4.2-5.4); White Blood Count 9.3 K/mm3 (4.4-11.0)
[2020-11-17] MEDS: Insulin Lispro 100 UNIT/ML INSULN.PEN SC ×4 (07:05→23:23)
[2020-11-17 07:29] LABS: ALB/GLOB Ratio 0.6 RATIO (0.9-2.4); AST(SGOT) 16 U/L (15-37); Alanine Aminotransfer ALT/SGPT 21 U/L (13-56); Albumin, Serum 2.3 g/dL (3.2-5.0); Alkaline Phosphatase 65 U/L (45-117); Anion Gap 8 (5-15); BUN 11 mg/dL (7-18); BUN/Creat Ratio 19.4 RATIO (10-20); Calcium,Total 8.3 mg/dL (8.5-10.1); Chloride 105 mmol/L (98-107); Creatinine, Serum 0.57 mg/dL (0.55-1.02); EST Glomerular Filtration Rate 128 mL/min (>60); Est Glom Filt Rate - Afr Amer 155 mL/min (>60); Estimated Creatinine Clearance 146.13 ml/min; Globulin 4.1 g/dL (2.2-4.2); Glucose 239 mg/dL (74-106); Potassium 3.6 mmol/L (3.5-5.1); Protein, Total 6.4 g/dL (6.4-8.2); Sodium Level 138 mmol/L (136-145)
[2020-11-17 08:06] LABS: Bedside Glucose 238 mg/dL (70-110)
[2020-11-17] MEDS: dexAMETHasone 10 MG/ML Vial 6 MG IV (10:44)
[2020-11-17] MEDS: Enoxaparin 40 MG/0.4 ML Syringe SC ×2 (10:45→23:16)
--- NOTE | 2020-11-17 11:47 | PN.HOSP_ITS ---
Subjective Subjective Patient seen and examined. She says she feels better today and has no complaints. She still on 6 L of oxygen. She has otherwise remained hemodynamically stable. Objective Data Objective Data Vital Signs: Vital Signs Temp Pulse Resp BP Pulse Ox 97.7 F L 70 18 141/89 H 92 11/17/20 02:50 11/17/20 03:05 11/17/20 02:50 11/17/20 02:50 11/17/20 02:50 Oxygen Flow Rate (L/min) [ 5 AMBULATING with Oxygen #1] Oxygen Flow Rate (L/min) [At 5 REST with Oxygen] Oxygen Flow Rate (L/min) 5 Oxygen Delivery Method Nasal Cannula Weight: 296 lb 1.6 oz Body Mass Index (BMI) 42.5 Intake & Output: Intake and Output for Last 24 Hours 11/15/20 11/16/20 11/17/20 23:59 23:59 23:59 Intake Total 3566.67 / 3566.67 1490 / 2190 1200 / 1200 Balance 3566.67 / 3566.67 1490 / 2190 1200 / 1200 Lab / Micro Data Result Diagrams: 11/17/20 05:05 11/17/20 05:05 Labs: Laboratory Results - last 24 hr 11/16/20 12:04: POC Glucose 321 H 11/16/20 15:35: POC Glucose 387 H 11/16/20 21:55: POC Glucose 311 H 11/17/20 05:05: WBC 9.3, RBC 4.06 L, Hgb 11.1 L, Hct 33.0 L, MCV 81.3, MCH 27.3, MCHC 33.6, RDW Std Deviation 36.7, RDW Coeff of Jabier 12.4, Plt Count 263, MPV 10.7, Immature Gran % (Auto) 0.900, Neut % (Auto) 56.6, Lymph % (Auto) 35.5, [place] % (Auto) 6.8, Eos % (Auto) 0.0, Baso % (Auto) 0.2, Absolute Neuts (auto) 5.2, Absolute Lymphs (auto) 3.28, Nucleated RBC % 0 11/17/20 05:05: Sodium 138, Potassium 3.6, Chloride 105, Carbon Dioxide 25.0, Anion Gap 8, BUN 11, Creatinine 0.57, Estim Creat Clear Calc 146.13, Est GFR (MDRD) Af Amer 155, Est GFR (MDRD) Non-Af 128, BUN/Creatinine Ratio 19.4, Glucose 239 H, Calcium 8.3 L, Total Bilirubin 0.40, AST 16, ALT 21, Alkaline Phosphatase 65, Total Protein 6.4, Albumin 2.3 L, Globulin 4.1, Albumin/Globulin Ratio 0.6 L 11/17/20 06:50: POC Glucose 238 H Physical Exam Const alert, oriented x3 and no apparent distress Constitutional Narrative: super morbid obesity General Appearance: cooperative Exam Limitations: no limitations HEENT normocephalic, head/scalp atraumatic, hearing grossly normal bilaterally and moist oral mucous membranes Eyes PERRL, EOMs intact bilaterally and conjunctivae normal Neck no lymphadenopathy, supple, no JVD and no carotid bruits Resp Resp Narrative: tachypneic, diminished breath sounds bibasally, no wheezes or crackles. On 7L of oxygen Cardio regular rate, regular rhythm, S1 normal heart sound, S2 normal heart sound and no murmurs Cardio Narrative: GI normal to inspection, nondistended, normoactive bowel sounds, soft to palpation, non-tender and non-distended Extremity normal to inspection, full ROM and no clubbing, cyanosis or edema Peripheral Pulses: Yes pulses 2+ throughout Skin no rashes or lesions noted Neuro oriented x3, CN's II-XII intact bilaterally and moves all extremities Sensorium / Orientation: awake and alert Psych affect normal Assessment & Plan Assessment/Plan (1) COVID: (2) Hypoxia: PLAN: #Acute hypoxic respiratory insufficiency due to COVID 19 infection * on remdesivir and decadron. * Is down to 6L today * on breathing treatment with bronchodilators. * titrate oxygen to maintain sats >90% * pulmonology on board * CTA of the chest done showed suboptimal opacification of the pulmonary arteries with no central or hilar pulmonary embolism, and segmental branch PE could not be excluded * ID consulted; await rec's/ * #SIRS criteria * resolved. * #Hypokalemia: resolved. K is 3.6 today #TYpe 2 diabetes mellitus * on metformin and insulin NPH 78 units bid. * ISS. Accuchecks ACHS * #DVT prophylaxis: lovenox 40mg bid Code status: full code * Charges/Coding Visit Charges Inpatient E&M: 46740 Subs Hosp L3
[2020-11-17 12:46] LABS: Bedside Glucose 274 mg/dL (70-110)
--- NOTE | 2020-11-17 13:57 | PN.CC_ITS ---
Assessment & Plan Assessment/Plan (1) COVID: PLAN: RECOMMENDATIONS: 1. Wean supplemental oxygen to maintain saturations at or above 90%. 2. Continue Decadron to complete 10 days of therapy. 3. Continue remdesivir to complete 5 days of therapy. Continue to monitor liver and renal function. 4. Awake prone positioning was encouraged. 5. Encourage incentive spirometer use and mobilize patient as tolerated. 6. Utilize IV Lasix as needed to maintain euvolemic state. 7. Continue Lovenox twice daily. IMPRESSIONS: 1. Acute hypoxemic respiratory failure secondary to COVID-19 pneumonia The patient presented to the hospital with progressive respiratory symptoms after having tested positive for coronavirus approximately 1 week ago. Accordingly, she will be maintained on remdesivir to complete a 5-day treatment course. Liver and renal function will be monitored. Decadron will be continued to complete 10 days of therapy. CTA chest was negative. Therefore, Lovenox twice daily will be continued. Continue to wean supplemental oxygen to maintain saturations at or above 90%. Awake prone positioning was encouraged. We will challenge patient with diuretics. Potassium will be given empirically. Patient will have a walking oximetry. If able to tolerate ambulation on 6 L or less, could potentially discharge home to complete Decadron taper. Patient will need to follow-up in our office in 4 to 6 weeks for evaluation of supplemental oxygen and determination of lung function. 2. Morbid obesity/diabetes mellitus/hypothyroidism/hypertension Complicates care, management, recovery and prognosis. Continue home medications as indicated. This note was generated with [employer] dictation software. It may contain incorrect words, spelling, and punctuation that were not noted in checking the note before signing. Subjective Subjective Patient did well overnight. No acute issues were reported. Patient overall feels subjectively improved compared to previous. Patient continues to report a cough with intermittent production. Objective Data Objective Data Vital Signs: Vital Signs Temp Pulse Resp BP Pulse Ox 36.7 C 80 19 H 153/86 H 96 11/17/20 11:00 11/17/20 11:00 11/17/20 11:00 11/17/20 11:00 11/17/20 11:00 Oxygen Flow Rate (L/min) [ 5 AMBULATING with Oxygen #1] Oxygen Flow Rate (L/min) [At 5 REST with Oxygen] Oxygen Flow Rate (L/min) 4 Oxygen Delivery Method Nasal Cannula Weight: 134.309 kg Body Mass Index (BMI) 42.5 Intake & Output: Intake and Output for Last 24 Hours 11/15/20 11/16/20 11/17/20 23:59 23:59 23:59 Intake Total 3566.67 / 3566.67 1490 / 2190 1200 / 1200 Balance 3566.67 / 3566.67 1490 / 2190 1200 / 1200 Lab / Micro Data Result Diagrams: 11/17/20 05:05 11/17/20 05:05 Labs: Laboratory Results - last 24 hr 11/16/20 15:35: POC Glucose 387 H 11/16/20 21:55: POC Glucose 311 H 11/17/20 05:05: WBC 9.3, RBC 4.06 L, Hgb 11.1 L, Hct 33.0 L, MCV 81.3, MCH 27.3, MCHC 33.6, RDW Std Deviation 36.7, RDW Coeff of Jabier 12.4, Plt Count 263, MPV 10. 7, Immature Gran % (Auto) 0.900, Neut % (Auto) 56.6, Lymph % (Auto) 35.5, [place] % (Auto) 6.8, Eos % (Auto) 0.0, Baso % (Auto) 0.2, Absolute Neuts (auto) 5.2, Absolute Lymphs (auto) 3.28, Nucleated RBC % 0 11/17/20 05:05: Sodium 138, Potassium 3.6, Chloride 105, Carbon Dioxide 25.0, Anion Gap 8, BUN 11, Creatinine 0.57, Estim Creat Clear Calc 146.13, Est GFR (MDRD) Af Amer 155, Est GFR (MDRD) Non-Af 128, BUN/Creatinine Ratio 19.4, Glucose 239 H, Calcium 8.3 L, Total Bilirubin 0.40, AST 16, ALT 21, Alkaline Phosphatase 65, Total Protein 6.4, Albumin 2.3 L, Globulin 4.1, Albumin/Globulin Ratio 0.6 L 11/17/20 06:50: POC Glucose 238 H 11/17/20 12:00: POC Glucose 274 H Physical Exam Const alert and no apparent distress Constitutional Narrative: Sitting in bedside recliner. General Appearance: cooperative Nutritional Appearance: morbidly obese HEENT normocephalic, head/scalp atraumatic and moist oral mucous membranes Eyes PERRL, EOMs intact bilaterally and conjunctivae normal Neck supple General: trachea midline Chest inspection of chest normal Resp normal respiratory effort Auscultation: diminished lung sounds; Negative for rales, rhonchi or wheezes Cardio regular rate and regular rhythm GI normal to inspection, nondistended, normoactive bowel sounds Extremity no clubbing, cyanosis or edema Skin no rashes or lesions noted Neuro oriented x3, CN's II-XII intact bilaterally and moves all extremities Psych cooperative and affect normal Charges/Coding Visit Charges Inpatient E&M: 97999 Subs Hosp L3
[2020-11-17] MEDS: Potassium Chloride Oral Tablet 20 MEQ 40 MEQ PO (14:45)
[2020-11-17] MEDS: 0.9% Saline Lock 10 ML Syringe IV ×2 (14:45→23:18)
[2020-11-17] MEDS: Furosemide 40 MG/4 ML Vial IV (14:46)
[2020-11-17 17:21] LABS: Bedside Glucose 443 mg/dL (70-110)
[2020-11-18] VITALS (13 sets, daily range): BP systolic 133–144; BP diastolic 71–91; PULSE 66–93; RESP 18; TEMP 36.5–36.9; O2SAT 67–95
[2020-11-18 00:01] LABS: Bedside Glucose 283 mg/dL (70-110)
[2020-11-18] MEDS: Insulin Lispro 100 UNIT/ML INSULN.PEN SC ×2 (06:35→11:39)
[2020-11-18 06:47] LABS: Absolute Lymphocyte Count 4.65 X10^3/uL (0.83-4.51); Absolute Neutrophil Count 4.1 X10^3/uL (2.0-7.7); Basophil# 0.06 X10^3/uL; Basophil% 0.6 % (0-1); Eosinophil# 0.03 X10^3/uL; Eosinophils% 0.3 % (0-5); Hematocrit 37.4 % (37-47); Hemoglobin 12.2 g/dL (12.0-15.0); Lymphocyte # 4.65 X10^3/ul (0.83-4.51); Lymphocyte % 47.6 % (19-41); Mean Corp Hgb Conc 32.6 g/dL (32-36); Mean Corpuscular Hgb 27.2 pg (27.0-32.0); Mean Corpuscular Volume 83.5 fL (81-99); Monocyte# 0.74 X10^3/uL; Monocyte% 7.6 % (0-10); NRBC Flagged by Analyzer 0.2 % (0-5); Neutrophil # 4.06 X10^3/uL (2.7-7.7); Neutrophil % 41.6 % (47-70); Platelet Count 275 K/mm3 (150-450); RBC Distribution Width CV 12.6 % (11.6-14.6); RBC Distribution Width SD 38.2 fl (35.1-43.9); Red Blood Count 4.48 M/mm3 (4.2-5.4); White Blood Count 9.8 K/mm3 (4.4-11.0)
[2020-11-18 07:11] LABS: Bedside Glucose 179 mg/dL (70-110)
[2020-11-18 07:26] LABS: ALB/GLOB Ratio 0.6 RATIO (0.9-2.4); AST(SGOT) 19 U/L (15-37); Alanine Aminotransfer ALT/SGPT 22 U/L (13-56); Albumin, Serum 2.5 g/dL (3.2-5.0); Alkaline Phosphatase 64 U/L (45-117); Anion Gap 10 (5-15); BUN 12 mg/dL (7-18); BUN/Creat Ratio 18.2 RATIO (10-20); Calcium,Total 8.6 mg/dL (8.5-10.1); Chloride 104 mmol/L (98-107); Creatinine, Serum 0.66 mg/dL (0.55-1.02); EST Glomerular Filtration Rate 107 mL/min (>60); Est Glom Filt Rate - Afr Amer 130 mL/min (>60); Globulin 4.2 g/dL (2.2-4.2); Glucose 193 mg/dL (74-106); Potassium 3.3 mmol/L (3.5-5.1); Protein, Total 6.7 g/dL (6.4-8.2); Sodium Level 137 mmol/L (136-145)
[2020-11-18] MEDS: Enoxaparin 40 MG/0.4 ML Syringe SC (08:36)
[2020-11-18] MEDS: dexAMETHasone 10 MG/ML Vial 6 MG IV (08:36)
[2020-11-18] MEDS: 0.9% Saline Lock 10 ML Syringe IV ×2 (08:37→10:07)
--- NOTE | 2020-11-18 11:11 | PN.CC_ITS ---
Assessment & Plan Assessment/Plan (1) COVID: PLAN: RECOMMENDATIONS: 1. Wean supplemental oxygen to maintain saturations at or above 90%. 2. Continue Decadron to complete 10 days of therapy. 3. Complete Remdesivir dose for today. 4. Obtain walking oximetry 5. Encourage incentive spirometer use and mobilize patient as tolerated. 6. Utilize IV Lasix as needed to maintain euvolemic state. 7. Okay to discharge from a pulmonary perspective if able to tolerate ambulation on 6 L or less 8. Patient should follow-up in our office in 4 to 6 weeks IMPRESSIONS: 1. Acute hypoxemic respiratory failure secondary to COVID-19 pneumonia The patient presented to the hospital with progressive respiratory symptoms after having tested positive for coronavirus approximately 1 week ago. Accordingly, she will be maintained on remdesivir to complete a 5-day treatment course. Liver and renal function will be monitored. Decadron will be continued to complete 10 days of therapy. CTA chest was negative. Therefore, Lovenox twice daily will be continued. Continue to wean supplemental oxygen to maintain saturations at or above 90%. Awake prone positioning was encouraged. Good response to diuretic therapy yesterday. Potassium supplementation as indicated. Patient will have a walking oximetry. If able to tolerate ambulation on 6 L or less, could potentially discharge home to complete Decadron taper. Patient will need to follow-up in our office in 4 to 6 weeks for evaluation of supplemental oxygen and determination of lung function. 2. Morbid obesity/diabetes mellitus/hypothyroidism/hypertension Complicates care, management, recovery and prognosis. Continue home medications as indicated. This note was generated with [employer] dictation software. It may contain incorrect words, spelling, and punctuation that were not noted in checking the note before signing. Subjective Subjective Patient feels subjectively improved compared to previous. Patient denies any obvious side effects to the medications. Patient has been able to be weaned to room air, but does desaturate and report dyspnea on exertion. No nausea or vomiting has been reported. Patient's was admitted yesterday and she is hoping to go home to be with her children. Objective Data Objective Data Vital Signs: Vital Signs Temp Pulse Resp BP Pulse Ox 36.5 C L 86 18 133/90 H 93 11/18/20 08:31 11/18/20 08:31 11/18/20 09:35 11/18/20 08:31 11/18/20 09:35 Oxygen Flow Rate (L/min) [ 5 AMBULATING with Oxygen #1] Oxygen Flow Rate (L/min) [At 5 REST with Oxygen] Oxygen Flow Rate (L/min) 4 Oxygen Delivery Method Room Air Weight: 134.309 kg Body Mass Index (BMI) 42.5 Intake & Output: Intake and Output for Last 24 Hours 11/16/20 11/17/20 11/18/20 23:59 23:59 23:59 Intake Total 1490 / 2190 2250 / 2250 Balance 1490 / 2190 2250 / 2250 Lab / Micro Data Result Diagrams: 11/18/20 06:20 11/18/20 06:20 Labs: Laboratory Results - last 24 hr 11/17/20 12:00: POC Glucose 274 H 11/17/20 17:03: POC Glucose 443 H 11/17/20 23:22: POC Glucose 283 H 11/18/20 06:20: WBC 9.8, RBC 4.48, Hgb 12.2, Hct 37.4, MCV 83.5, MCH 27.2, MCHC 32.6, RDW Std Deviation 38.2, RDW Coeff of Jabier 12.6, Plt Count 275, MPV 10.0, Immature Gran % (Auto) 2.300 H, Neut % (Auto) 41.6 L, Lymph % (Auto) 47.6 H, [place] % (Auto) 7.6, Eos % (Auto) 0.3, Baso % (Auto) 0.6, Absolute Neuts (auto) 4.1, Absolute Lymphs (auto) 4.65 H, Nucleated RBC % 0.2 11/18/20 06:20: Sodium 137, Potassium 3.3 L, Chloride 104, Carbon Dioxide 23.0, Anion Gap 10, BUN 12, Creatinine 0.66, Estim Creat Clear Calc 126.20, Est GFR (MDRD) Af Amer 130, Est GFR (MDRD) Non-Af 107, BUN/Creatinine Ratio 18.2, Glucose 193 H, Calcium 8.6, Total Bilirubin 0.30, AST 19, ALT 22, Alkaline Phosphatase 64, Total Protein 6.7, Albumin 2.5 L, Globulin 4.2, Albumin/Globulin Ratio 0.6 L 09/13/21 06:34: POC Glucose 179 H Physical Exam Const alert and no apparent distress Constitutional Narrative: Sitting in bedside recliner. General Appearance: cooperative Nutritional Appearance: morbidly obese HEENT normocephalic, head/scalp atraumatic and moist oral mucous membranes Eyes PERRL, EOMs intact bilaterally and conjunctivae normal Neck supple General: trachea midline Chest inspection of chest normal Resp normal respiratory effort Auscultation: diminished lung sounds; Negative for rales, rhonchi or wheezes Cardio regular rate and regular rhythm GI normal to inspection, nondistended, normoactive bowel sounds Extremity no clubbing, cyanosis or edema Skin no rashes or lesions noted Neuro oriented x3, CN's II-XII intact bilaterally and moves all extremities Psych cooperative and affect normal Charges/Coding Visit Charges Inpatient E&M: 30217 Subs Hosp L2
[2020-11-18] MEDS: Potassium Chloride Oral Tablet 20 MEQ 40 MEQ PO (11:39)
[2020-11-18 11:56] LABS: Bedside Glucose 354 mg/dL (70-110)
--- NOTE | 2020-11-18 13:26 | DCINST_ITS ---
Discharge Instructions Diet Discharge Diet: 1999 Calorie Control Diet Activity Discharge Activity: Return to Normal Activity Additional Activity Instructions:: Self isolate for at least 20 days since symptoms began (11/04-11/24/2020) AND at least one day (24 hours) have passed since resolution of fever without the use of fever-reducing agents AND improvement of symptoms (e.g., cough, shortness of breath) When around people in the same room, wear a face mask. Individuals also in the room should wear a mask. If possible, use a different bathroom and bedroom. Perform adequate hand hygiene. Avoid sharing dishes, glasses, etc. Dressing / Incision Call your doctor if you observe: Fever of 101 or Higher and Shortness of breath Follow Up Care Test Results: Test results from this visit will be discussed in further detail at your follow-up appointment, if applicable. 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 Referrals / Follow Up: Kendall Ordonez DO [Primary Care Provider] - Disposition Disposition (needs filled in before D/C Order can be placed): Home, Self Care
--- NOTE | 2020-11-18 13:32 | DS.PCM_ITS ---
Providers Date of Admission: 11/14/20 Primary Care Physician: Dr. Kendall Ordonez, DO Consultations 11/16/20 07:32 Consult: Obstetrical Anesthesiologist / Pulmonary Medicine Routine Consulting Provider: Pulmonary Medicine magy [place] Reason for Consult: ACUTE HYPOXIC RESPIRATORY FAILURE DUE TO COVID 19 INFECTION EMERGENT Consult: No MD Notified: Yes Date Notified: 11/16/20 Time Notified: 07:32 Method of Notification: Text Reason For Visit: COVID 19 INFECTION Diagnosis Discharge Diagnosis (1) COVID: Status: Acute Code(s): U07.1 - COVID-19 Medications at Discharge Home Medications metformin 1,000 mg PO BIDCM 08/07/14 Basaglar KwikPen U-100 Insulin 49 unit SUBCUT QHS 11/14/20 drospirenone-ethinyl estradiol 1 tab PO DAILY 11/14/20 levothyroxine 50 mcg PO DAILY 11/14/20 losartan [Cozaar] 25 mg PO DAILY 11/14/20 dexamethasone 6 mg PO DAILY #5 tab 11/18/20 Hospital Course Operations None Procedures None Summary of Care Provided Minutes Spent on Discharge: 28 Hospital Course: 35-year-old female presents with cough and shortness of breath. Patient had symptom onset on November 04. Patient progressively got worse and was requiring oxygen to maintain sats of 93%. Patient with positive COVID-19 and was unvaccinated. Patient was started on remdesivir as well as dexamethasone and her course has improved. Patient is now on room air. Patient will complete a 10-day course of dexamethasone. Incidentally, patient's also contracted COVID-19 and was also subsequently hospitalized. Since they do have young children who are currently being watched by family. Informed patient that she needs to quarantine for total 20 days through the . She will need to wear a mask around others and he will need to wear a mask around her when they are around her. Physical Exam Const alert Resp normal respiratory effort Cardio regular rate, regular rhythm, S1 normal heart sound and S2 normal heart sound GI normal to inspection, nondistended, normoactive bowel sounds and soft to palpation Weight / BMI Weight Weight: 134.309 kg Body Mass Index (BMI) 42.5 ABG / Lab / Microbiology Data Result Diagrams: 11/18/20 06:20 11/18/20 06:20 Laboratory: Laboratory Results - last 24 hr 11/17/20 17:03: POC Glucose 443 H 11/17/20 23:22: POC Glucose 283 H 11/18/20 06:20: WBC 9.8, RBC 4.48, Hgb 12.2, Hct 37.4, MCV 83.5, MCH 27.2, MCHC 32.6, RDW Std Deviation 38.2, RDW Coeff of Jabier 12.6, Plt Count 275, MPV 10.0, Immature Gran % (Auto) 2.300 H, Neut % (Auto) 41.6 L, Lymph % (Auto) 47.6 H, [place]oke % (Auto) 7.6, Eos % (Auto) 0.3, Baso % (Auto) 0.6, Absolute Neuts (auto) 4.1, Absolute Lymphs (auto) 4.65 H, Nucleated RBC % 0.2 11/18/20 06:20: Sodium 137, Potassium 3.3 L, Chloride 104, Carbon Dioxide 23.0, Anion Gap 10, BUN 12, Creatinine 0.66, Estim Creat Clear Calc 126.20, Est GFR (MDRD) Af Amer 130, Est GFR (MDRD) Non-Af 107, BUN/Creatinine Ratio 18.2, Glucose 193 H, Calcium 8.6, Total Bilirubin 0.30, AST 19, ALT 22, Alkaline Phosphatase 64, Total Protein 6.7, Albumin 2.5 L, Globulin 4.2, Albumin/Globulin Ratio 0.6 L 11/18/20 06:34: POC Glucose 179 H 11/18/20 11:38: POC Glucose 354 H D/C Instructions Discharge Diet: 2000 Calorie Control Diet Additional Activity Instructions: Self isolate for at least 20 days since symptoms began (11/04-11/24/2020) AND at least one day (24 hours) have passed since resolution of fever without the use of fever-reducing agents AND improvement of symptoms (e.g., cough, shortness of breath) When around people in the same room, wear a face mask. Individuals also in the room should wear a mask. If possible, use a different bathroom and bedroom. Perform adequate hand hygiene. Avoid sharing dishes, glasses, etc. 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 Referrals / Follow Up: Kendall Ordonez DO [Primary Care Provider] - Disposition Disposition (needs filled in before D/C Order can be placed): Home, Self Care Charges/Coding Visit Charges Inpatient E&M: 10220 Disch Hosp
--- NOTE | 2020-11-18 15:32 | PHA.DC.MR ---
Pharmacy Service has performed discharge medication reconciliation for this patient. The patient's discharge medication list was reviewed for discrepancies and discrepancies were resolved. Medications reviewed, unable to attempt to on awake counselor prior to discharge. Home Medications metformin 1,000 mg PO BIDCM 08/07/14 Basaglar KwikPen U-100 Insulin 49 unit SUBCUT QHS 11/14/20 drospirenone-ethinyl estradiol 1 tab PO DAILY 11/14/20 levothyroxine 50 mcg PO DAILY 11/14/20 losartan [Cozaar] 25 mg PO DAILY 11/14/20 dexamethasone 6 mg PO DAILY #5 tab 11/18/20
--- NOTE | 2020-11-19 11:40 | CASEMGMT ---
[facility] CM Discharge Follow Up COVID Phone Call: JUDITH: Maggie Strata: 2 Call Date: 11/19/20 Discharge Date: 11/18/20 Time of Call: 1137 Duration: 3 min Admitting Dx:COVID 19 infection RN ELAINA completed follow up phone call after recent hospitalization. Pt states she is doing ok. She has been checking her pulse ox and it is between 93-94%. Pt did not qualify for home O2. Pt aware of her quarantine timeframe and she is following this. She has obtained her rx. She has not yet made her follow up appt with but patient reports she will. Pt denied further questions or concerns at this time.
== END 2020-11-18 15:31 | disposition home or self-care (01) | DRG 177 ==
LOC: ED 13:11 → MS3 13:46
PROVIDERS: Admitting Provider Student in an Organized Health Care Education/Training Program; Emergency Provider Emergency Medicine; PCP Student in an Organized Health Care Education/Training Program
DX: U07.1 COVID-19 (principal); J12.82 Pneumonia due to coronavirus disease 2019; J96.01 Acute respiratory failure with hypoxia; Z68.41 Body mass index [BMI] 40.0-44.9, adult; E87.6 Hypokalemia; E11.9 Type 2 diabetes mellitus without complications; I10 Essential (primary) hypertension; E03.9 Hypothyroidism, unspecified; G47.30 Sleep apnea, unspecified; E66.01 Morbid (severe) obesity due to excess calories; Z79.4 Long term (current) use of insulin; Z79.890 Hormone replacement therapy; Z79.899 Other long term (current) drug therapy; Z87.19 Personal history of other diseases of the digestive system; Z90.49 Acquired absence of other specified parts of digestive tract
CPT/HCPCS: 36415; 71045; 71275; 80048; 80053; 82550; 82962; 83605; 83880; 84075; 84145; 84484; 85025; 85379; 85610; 94762; 99251; 99284; J7030; J7050; Q9967; A4216; G0463; J1940